=== PATIENT | male | born 1970 | race Caucasian/White ===

== ENCOUNTER 2016-10-01 13:05 | Emergency (ER) | payer SELFPAY ==
[2016-10-01 15:40] LABS: BASOPHILS 0.7 % (0.0-2.0); EOSINOPHILS 3.5 % (0-7); HEMATOCRIT 41.4 % (42.0-54.0); IMMATURE GRANULOCYTES 0.2 % (0-5); LYMPHOCYTES 38.9 % (15-50); MCHC 33.8 g/dL (31.0-37.0); MCV 88.8 fL (80.0-100.0); MEAN PLATELET VOLUME 10.1 fL (7.4-10.4); MONOCYTES 12.2 % (2-11); NEUTROPHILS 44.5 % (40-80); PLATELET COUNT 239 10x3/uL (130-400); RBC 4.66 10x6/uL (4.20-6.10); WBC 4.6 10x3/uL (4.8-10.8)
[2016-10-01 16:06] LABS: ALBUMIN 3.7 g/dL (3.4-5.0); ALKALINE PHOSPHATASE 68 U/L (46-116); ALT (SGPT) 51 U/L (10-68); BILIRUBIN - TOTAL 0.27 mg/dL (0.2-1.3); CALC OSMOLALITY 284 mosm/kg (275-300); CALCIUM 8.8 mg/dL (8.5-10.1); CARBON DIOXIDE 28.7 mmol/L (21.0-32.0); CHLORIDE - SERUM 104 mmol/L (98-107); CREATININE - SERUM 0.9 mg/dL (0.6-1.3); GLUCOSE 112 mg/dL (74-106); POTASSIUM - SERUM 3.2 mmol/L (3.5-5.1); PROTEIN - SERUM 7.4 g/dL (6.4-8.2); SODIUM 142 mmol/L (136-145); UREA NITROGEN 15 mg/dL (7-18); eGFR NON AFRICAN AMERICAN > 90 mL/min (90-120)
== END 2016-10-01 16:25 | disposition home or self-care (01) ==
LOC: D.ER 13:05
PROVIDERS: Family Medicine
DX: M47.22 Other spondylosis with radiculopathy, cervical region (principal); I10 Essential (primary) hypertension; F41.0 Panic disorder [episodic paroxysmal anxiety]; F32.9 Major depressive disorder, single episode, unspecified; F43.10 Post-traumatic stress disorder, unspecified

== ENCOUNTER 2016-10-27 13:11 | Emergency (ER) | payer MEDICAID ==
[2016-10-27 15:36] LABS: BASOPHILS 0.4 % (0.0-2.0); EOSINOPHILS 2.1 % (0-7); HEMATOCRIT 41.8 % (42.0-54.0); IMMATURE GRANULOCYTES 0.2 % (0-5); LYMPHOCYTES 39.8 % (15-50); MCH 29.7 pg (26.0-34.0); MCHC 33.5 g/dL (31.0-37.0); MCV 88.7 fL (80.0-100.0); MEAN PLATELET VOLUME 9.8 fL (7.4-10.4); MONOCYTES 10.5 % (2-11); PLATELET COUNT 283 10x3/uL (130-400); RBC 4.71 10x6/uL (4.20-6.10); RDW 12.9 % (11.5-14.5); WBC 4.7 10x3/uL (4.8-10.8)
[2016-10-27 16:06] LABS: ALBUMIN 3.9 g/dL (3.4-5.0); ALKALINE PHOSPHATASE 69 U/L (46-116); ALT (SGPT) 62 U/L (10-68); CALC OSMOLALITY 278 mosm/kg (275-300); CALCIUM 9.1 mg/dL (8.5-10.1); CARBON DIOXIDE 29.4 mmol/L (21.0-32.0); CHLORIDE - SERUM 104 mmol/L (98-107); GLUCOSE 84 mg/dL (74-106); POTASSIUM - SERUM 3.7 mmol/L (3.5-5.1); PROTEIN - SERUM 7.5 g/dL (6.4-8.2); SODIUM 140 mmol/L (136-145); UREA NITROGEN 16 mg/dL (7-18); eGFR NON AFRICAN AMERICAN 86 mL/min (90-120)
[2016-10-27 17:51] LABS: APPEARANCE CLEAR (CLEAR); BILIRUBIN NEGATIVE (NEGATIVE); COLOR YELLOW (YELLOW); GLUCOSE NEGATIVE (NEGATIVE); KETONE NEGATIVE (NEGATIVE); LEUKOCYTE ESTERASE NEGATIVE (NEGATIVE); NITRITE NEGATIVE (NEGATIVE); PROTEIN NEGATIVE (NEGATIVE); UROBILINOGEN NORMAL (NORMAL)
== END 2016-10-27 18:19 | disposition home or self-care (01) ==
LOC: D.ER 13:11
PROVIDERS: Emergency Medicine
DX: I10 Essential (primary) hypertension (principal); F32.9 Major depressive disorder, single episode, unspecified; M54.12 Radiculopathy, cervical region; F41.0 Panic disorder [episodic paroxysmal anxiety]; F43.10 Post-traumatic stress disorder, unspecified

== ENCOUNTER 2016-11-15 12:11 | Emergency (ER) | payer MEDICAID | END 2016-11-15 14:30 | disposition home or self-care (01) | LOC: D.ER 12:11 | DX: M54.12 Radiculopathy, cervical region (principal); I10 Essential (primary) hypertension; F41.0 Panic disorder [episodic paroxysmal anxiety]; F43.10 Post-traumatic stress disorder, unspecified; F17.200 Nicotine dependence, unspecified, uncomplicated ==

== ENCOUNTER → 2017-04-28 15:17 | Outpatient (CLI) | payer MEDICAID | END | disposition home or self-care (01) | LOC: D.MRI 15:17 | DX: M54.5 Low back pain (principal); M54.12 Radiculopathy, cervical region ==

== ENCOUNTER 2017-05-09 13:49 | Emergency (ER) | payer MEDICAID | END 2017-05-09 17:01 | disposition home or self-care (01) | LOC: D.ER 13:49 | DX: M54.5 Low back pain (principal) ==

== ENCOUNTER 2017-06-24 12:36 | Emergency (ER) | payer MEDICAID ==
[2017-06-24 13:31] LABS: BASOPHILS 0.7 % (0-2); EOSINOPHILS 2.5 % (0-7); HEMATOCRIT 40.8 % (42.0-54.0); HEMOGLOBIN 13.9 g/dL (13.5-17.5); IMMATURE GRANULOCYTES 0.2 % (0-5); LYMPHOCYTES 40.8 % (15-50); MCH 29.9 pg (26.0-34.0); MCHC 34.1 g/dL (31.0-37.0); MCV 87.7 fL (80.0-100.0); MEAN PLATELET VOLUME 9.9 fL (7.4-10.4); MONOCYTES 13.1 % (2-11); NEUTROPHILS 42.7 % (40-80); PLATELET COUNT 265 10x3/uL (130-400); RBC 4.65 10x6/uL (4.20-6.10); RDW 13.3 % (11.5-14.5); WBC 4.4 10x3/uL (4.8-10.8)
== END 2017-06-24 16:39 | disposition home or self-care (01) ==
LOC: D.ER 12:36
PROVIDERS: Emergency Medicine
DX: M54.12 Radiculopathy, cervical region (principal); I10 Essential (primary) hypertension; F17.200 Nicotine dependence, unspecified, uncomplicated

== ENCOUNTER 2017-07-18 11:48 | Emergency (ER) | payer MEDICAID | END 2017-07-18 14:22 | disposition home or self-care (01) | LOC: D.ER 11:48 | DX: G89.29 Other chronic pain (principal); F17.200 Nicotine dependence, unspecified, uncomplicated; I10 Essential (primary) hypertension ==

== ENCOUNTER 2017-08-08 12:56 | Emergency (ER) | payer MEDICAID | END 2017-08-08 16:20 | disposition home or self-care (01) | LOC: D.ER 12:56 | DX: M79.2 Neuralgia and neuritis, unspecified (principal); M54.2 Cervicalgia; I10 Essential (primary) hypertension; F17.200 Nicotine dependence, unspecified, uncomplicated ==

== ENCOUNTER 2017-09-12 13:50 | Emergency (ER) | payer MEDICAID | END 2017-09-12 16:34 | disposition home or self-care (01) | LOC: D.ER 13:50 | DX: M48.32 Traumatic spondylopathy, cervical region (principal); M54.12 Radiculopathy, cervical region; I10 Essential (primary) hypertension ==

== ENCOUNTER 2018-03-21 10:04 | Emergency (ER) | payer MEDICAID ==
[~2018-03-21] VITALS: Ht 190.5 cm; Wt 113.6 kg
[2018-03-21 10:08] VITALS: Ht 190.5 cm; Wt 113.6 kg
[2018-03-21] MEDS ORDERED: NORVASC5 MG PO (10:09)
[2018-03-21] MEDS ORDERED: CELEXA40 MG PO (10:11)
[2018-03-21] MEDS ORDERED: LISINOPRIL-HCTZ1 TA2 PO (10:11)
[2018-03-21] MEDS ORDERED: VOLTAREN75 MG PO (11:29)
[2018-03-21] MEDS ORDERED: ROBAXIN-750750 MG PO (11:29)
[2018-03-21 11:46] VITALS: BP 199/94
== END 2018-03-21 11:48 | disposition home or self-care (01) ==
LOC: D.ER 10:04
DX: M54.5 Low back pain (principal); M79.1 Myalgia; M54.2 Cervicalgia; M79.605 Pain in left leg; I10 Essential (primary) hypertension; F17.200 Nicotine dependence, unspecified, uncomplicated

== ENCOUNTER 2019-03-27 10:26 | Emergency (ER) | payer MEDICAID ==
[~2019-03-27] VITALS: Ht 190.5 cm; Wt 109.1 kg
[~2019-03-27 10:26] MED LIST: CELEXA40 MG PO; LISINOPRIL-HCTZ1 TA2 PO; NORVASC5 MG PO; ROBAXIN-750750 MG PO; VOLTAREN75 MG PO
[2019-03-27 10:44] VITALS: Ht 190.5 cm; Wt 109.1 kg
[2019-03-27] MEDS ORDERED: NORVASC10 MG PO (10:48)
[2019-03-27] MEDS ORDERED: TOPROL XL25 MG PO (10:49)
[2019-03-27] MEDS ORDERED: VOLTAREN75 MG PO (11:06)
[2019-03-27] MEDS ORDERED: CYCLOBENZAPRINE10 MG PO (11:06)
[2019-03-27 11:36] VITALS: BP 137/82
== END 2019-03-27 11:36 | disposition home or self-care (01) ==
LOC: D.ER 10:26
DX: M54.2 Cervicalgia (principal); M62.838 Other muscle spasm

== ENCOUNTER 2019-06-11 11:37 | Emergency (ER) | payer MEDICAID ==
[~2019-06-11] VITALS: Ht 190.5 cm; Wt 106.8 kg
[~2019-06-11 11:37] MED LIST changes: +CYCLOBENZAPRINE10 MG PO; +NORVASC10 MG PO; +TOPROL XL25 MG PO
[2019-06-11 11:41] VITALS: Ht 190.5 cm; Wt 106.8 kg
[2019-06-11 12:11] LABS: BASOPHILS 0.4 % (0-2); HEMATOCRIT 41.1 % (42.0-54.0); HEMOGLOBIN 14.1 g/dL (13.5-17.5); IMMATURE GRANULOCYTES 0.2 % (0-5); LYMPHOCYTES 38.8 % (15-50); MCH 29.9 pg (26.0-34.0); MCHC 34.3 g/dL (31.0-37.0); MCV 87.3 fL (80.0-100.0); MEAN PLATELET VOLUME 9.8 fL (7.4-10.4); MONOCYTES 13.3 % (2-11); NEUTROPHILS 44.3 % (40-80); PLATELET COUNT 288 10x3/uL (130-400); RBC 4.71 10x6/uL (4.20-6.10); RDW 13.8 % (11.5-14.5); WBC 5.3 10x3/uL (4.8-10.8)
[2019-06-11 12:21] LABS: CALC OSMOLALITY 280 mosm/kg (275-300); CALCIUM 9.2 mg/dL (8.5-10.1); CARBON DIOXIDE 28.8 mmol/L (21.0-32.0); CHLORIDE - SERUM 105 mmol/L (98-107); GLUCOSE 81 mg/dL (74-106); POTASSIUM - SERUM 3.1 mmol/L (3.5-5.1); SODIUM 141 mmol/L (136-145); UREA NITROGEN 14 mg/dL (7-18); eGFR NON AFRICAN AMERICAN 85 mL/min (90-120)
[2019-06-11 12:38] LABS: ALBUMIN 3.6 g/dL (3.4-5.0); ALKALINE PHOSPHATASE 71 U/L (46-116); ALT (SGPT) 35 U/L (10-68); BILIRUBIN - TOTAL 0.31 mg/dL (0.2-1.3); CKMB 0.8 U/L (0.0-3.6); CREATINE KINASE 117 UL (21-232); MAGNESIUM - SERUM 2.1 mg/dL (1.8-2.4); PROTEIN - SERUM 7.5 g/dL (6.4-8.2); TROPONIN-I < 0.017 ng/mL (0.000-0.060)
[2019-06-11 12:56] LABS: APPEARANCE CLEAR (CLEAR); BILIRUBIN NEGATIVE (NEGATIVE); COLOR YELLOW (YELLOW); GLUCOSE NEGATIVE (NEGATIVE); KETONE NEGATIVE (NEGATIVE); NITRITE NEGATIVE (NEGATIVE); PROTEIN NEGATIVE (NEGATIVE); UROBILINOGEN NORMAL (NORMAL)
[2019-06-11] MEDS ORDERED: PREDNISONE20 MG PO (14:51)
[2019-06-11 15:20] VITALS: BP 118/76
== END 2019-06-11 15:22 | disposition home or self-care (01) ==
LOC: D.ER 11:37
PROVIDERS: Family Medicine
DX: E87.6 Hypokalemia (principal); G89.29 Other chronic pain; M54.9 Dorsalgia, unspecified

== ENCOUNTER 2020-02-20 03:45 | Emergency (ER) | payer MEDICAID ==
[~2020-02-20 03:45] MED LIST changes: +PREDNISONE20 MG PO
[2020-02-20 03:52] VITALS: Ht 190.5 cm
[2020-02-20 04:28] LABS: BASOPHILS 0.5 % (0-2); EOSINOPHILS 2.3 % (0-7); HEMATOCRIT 42.2 % (42.0-54.0); HEMOGLOBIN 14.2 g/dL (13.5-17.5); IMMATURE GRANULOCYTES 0.2 % (0-5); LYMPHOCYTES 47.9 % (15-50); MCH 29.5 pg (26.0-34.0); MCHC 33.6 g/dL (31.0-37.0); MCV 87.7 fL (80.0-100.0); MEAN PLATELET VOLUME 10.2 fL (7.4-10.4); MONOCYTES 10.3 % (2-11); NEUTROPHILS 38.8 % (40-80); PLATELET COUNT 312 10x3/uL (130-400); RBC 4.81 10x6/uL (4.20-6.10); RDW 13.5 % (11.5-14.5); WBC 5.7 10x3/uL (4.8-10.8)
[2020-02-20 04:29] LABS: CALC OSMOLALITY 277 mosm/kg (275-300); CALCIUM 8.8 mg/dL (8.5-10.1); CARBON DIOXIDE 25.2 mmol/L (21.0-32.0); CHLORIDE - SERUM 105 mmol/L (98-107); GLUCOSE 97 mg/dL (74-106); POTASSIUM - SERUM 3.9 mmol/L (3.5-5.1); SODIUM 138 mmol/L (136-145); UREA NITROGEN 19 mg/dL (7-18); eGFR NON AFRICAN AMERICAN 85 mL/min (90-120)
[2020-02-20 04:36] LABS: ALBUMIN 3.8 g/dL (3.4-5.0); ALKALINE PHOSPHATASE 83 U/L (30-120); ALT (SGPT) 41 U/L (10-68); BILIRUBIN - TOTAL 0.23 mg/dL (0.2-1.3); C-REACTIVE PROTEIN 0.9 mg/dL (0.0-0.9); CREATINE KINASE 131 UL (21-232); MAGNESIUM - SERUM 1.9 mg/dL (1.8-2.4); PROTEIN - SERUM 7.7 g/dL (6.4-8.2)
[2020-02-20 04:56] VITALS: BP 132/78
== END 2020-02-20 04:56 | disposition home or self-care (01) ==
LOC: D.ER 03:45
PROVIDERS: Family Medicine
DX: M72.2 Plantar fascial fibromatosis (principal); M25.562 Pain in left knee; M25.561 Pain in right knee; G89.29 Other chronic pain; I10 Essential (primary) hypertension

== ENCOUNTER → 2020-03-07 10:35 | Outpatient (CLI) | payer MEDICAID | END | disposition home or self-care (01) | LOC: D.MRI 10:35 | PROVIDERS: ATTEND Orthopaedic Surgery | DX: S83.231A Complex tear of medial meniscus, current injury, right knee, initial encounter (principal); S83.232A Complex tear of medial meniscus, current injury, left knee, initial encounter ==

== ENCOUNTER 2020-04-03 09:52 | Day surgery (SDC) | payer MEDICAID ==
[2020-03-31 11:09] LABS: HEMATOCRIT 42.1 % (42.0-54.0); HEMOGLOBIN 13.9 g/dL (13.5-17.5); MCV 87.7 fL (80.0-100.0); MEAN PLATELET VOLUME 9.8 fL (7.4-10.4); RBC 4.8 10x6/uL (4.20-6.10); RDW 13.6 % (11.5-14.5); WBC 5.8 10x3/uL (4.8-10.8)
[~2020-04-03] VITALS: Ht 190.5 cm; Wt 113.4 kg
[~2020-04-03 09:52] MED LIST changes: +FLUTICASONE PRO16 GM NASAL; +HYDROCODON-ACE1 EA10; +NAPROSYN500 MG PO
[2020-04-03 10:35] VITALS: BP 132/72; Ht 190.5 cm; Wt 113.4 kg
[2020-04-03] MEDS ORDERED: HYDROCODON-ACE1 EA10 PO (12:35)
--- NOTE | 2020-04-03 12:54 | NUR ---
TUBE IN PLACE ON ADMIT
--- NOTE | 2020-04-03 12:55 | NUR ---
ET TUBE OUT @1210
--- NOTE | 2020-04-03 15:56 | NUR ---
1430 IV D/C'D WITH CANNULA INTACT, PRESSURE HELD, AND DRSG APPLIED. DISCHARGE INSTRUCTIONS GIVEN AND PT VERBALIZED AN UNDERSTANDING. PT IS UNDER PAIN CONTRACT AND HE WAS INSTRUCTED TO CALL PAIN CLINIC BEFORE FILLING HIS PAIN MEDS TO MAKE THEM AWARE. DISCHARGED VIA WC TO [facility] IN STABLE CONDITION
--- NOTE | 2020-04-07 09:14 | OP ---
PATIENT NAME: MATEO ROB MEDICAL RECORD: [id number] :74 [facility] AD[facility]ION DATE: SURGEON: CHICHI BRICENO MD DATE OF OPERATION: 04/03/2020 PREOPERATIVE DIAGNOSIS: Medial meniscus tear of the right knee. POSTOPERATIVE DIAGNOSIS: Medial meniscus tear of the right knee. PROCEDURE: Arthroscopic partial medial meniscectomy. SURGEON: Chichi Briceno MD ANESTHESIA: General. INTRAOPERATIVE COMPLICATIONS: None. SUMMARY OF PATHOLOGIC FINDINGS: The patient was indeed having horizontal cleavage plane tear of the medial meniscus consistent with preoperative diagnosis. OPERATIVE SUMMARY IN DETAIL: After obtaining appropriate preoperative orthopedic surgery consent as well as anesthetic consultation, evaluation and clearance, the patient was brought to the operating room and placed on the operating table in a supine position. After adequate general laryngeal mask airway was administered, tourniquet was placed in the proximal aspect of the right lower extremity. The right lower extremity was prepped and draped in routine sterile fashion. The leg was elevated and exsanguinated, tourniquet inflated to 350 mmHg. At this time, the appropriate timeout was taken and agreed upon by all given the patient's unique identifiers. Inferolateral portal was created followed by superomedial portal and inferomedial portal. Diagnostic arthroscopy did reveal the horizontal cleavage plane tear of the meniscus as seen on the MRI. A combination of meniscotomes as well as arthroscopic resector were utilized to debride the torn meniscus back to stable meniscal elements. The patient did have good residual menisci, after the torn portions were removed and smoothened. Having completed this, the knee was insufflated with 30 cc of 0.25% Marcaine with epinephrine and 80 mg of Depo-Medrol. Arthroscopy portals were closed in routine interrupted fashion using 4-0 Prolene. Sterile dressings were applied. The patient was awakened and taken to the recovery room in stable condition. All final needle and sponge counts were correct. TRANSINT:[id number] Voice Confirmation ID: [id number] DOCUMENT ID: [id number] CHICHI BRICENO MD at 0914 CC: [id number] DICTATION DATE: 04/03/20 1245 FILLER SHREDDER MACHINE: 04/03/20 2256 DEP SD 04/03/20 [place] [id number]
== END 2020-04-03 14:45 | disposition home or self-care (01) ==
LOC: D.OPS 09:52 → D.PAN 12:15 → D.OPS 12:15
PROVIDERS: Anesthesiology; ATTEND Orthopaedic Surgery
DX: S83.231A Complex tear of medial meniscus, current injury, right knee, initial encounter (principal); X58.XXXA Exposure to other specified factors, initial encounter; I10 Essential (primary) hypertension; M25.561 Pain in right knee; M25.551 Pain in right hip; M70.61 Trochanteric bursitis, right hip

== ENCOUNTER → 2020-04-23 11:57 | Outpatient (CLI) | payer MEDICAID ==
[2020-04-03 10:35] VITALS: BMI 31.3
[~2020-04-23 11:57] MED LIST changes: +HYDROCODON-ACE1 EA10 PO
== END | disposition home or self-care (01) ==
LOC: D.MRI 04-21 14:30
PROVIDERS: ATTEND Orthopaedic Surgery
DX: M66.821 Spontaneous rupture of other tendons, right upper arm (principal)

== ENCOUNTER → 2020-05-20 | Emergency (ER) | payer MEDICAID ==
[~2020-05-20] VITALS: Ht 190.5 cm; Wt 104.5 kg
[2020-05-20 11:34] VITALS: BP 151/94; Ht 190.5 cm; Wt 104.5 kg
== END | disposition home or self-care (01) ==
LOC: D.ER 11:10
DX: G89.29 Other chronic pain (principal); Z76.5 Malingerer [conscious simulation]; Z76.0 Encounter for issue of repeat prescription; I10 Essential (primary) hypertension; M54.9 Dorsalgia, unspecified; M25.561 Pain in right knee; M54.2 Cervicalgia

== ENCOUNTER 2020-12-03 10:25 | Emergency (ER) | payer MEDICAID ==
[~2020-12-03] VITALS: Ht 190.5 cm; Wt 113.6 kg
[2020-12-03 10:31] VITALS: BP 179/99; Ht 190.5 cm; Wt 113.6 kg
[2020-12-03] MEDS ORDERED: GABAPENTIN300 MG PO (10:34)
== END 2020-12-03 11:11 | disposition home or self-care (01) ==
LOC: D.ER 10:25
DX: M54.5 Low back pain (principal); G89.29 Other chronic pain; I10 Essential (primary) hypertension; Z72.0 Tobacco use